=== PATIENT | male | born 1975 | race African-American/Black ===

== ENCOUNTER 2016-12-17 06:04 | Day surgery (SDC) | payer OTHER ==
--- NOTE | 2016-12-13 08:09 | PCM.HPSURG ---
Subjective Date of Service: Dec 02, 2016 Referring Provider: Admitting Physician: Primary Care Physician: Jonathan Bosch MD Attending Physician: Vel Rzaa MD Chief Complaint SEE BELOW History of Present Illness Patient: Primitivo Jones Date of : 1975 Visit Type: Pre Op Visit Date: 12/02/2016 10:45 AM This 41 year old male presents for Preop MIS left L5-S1 Hemilami/Decompress & Microdisc. History of Present Illness: 1. Preop MIS left L5-S1 Hemilami/Decompress & Microdisc Primitivo Jones is a 41 year old male referred by Primary Care Provider (PCP) Dr. Cesar Cartagena M.D. on today's date 12/02/2016 for a preoperative type of appointment concerning the decision for surgery involving minimal access surgery with left L5-S1 partial hemilaminectomy, lateral recess decompression all the left S1 nerve root, microdiscectomy, & harvest of subcutaneous fat from a separate incision for epidural fat graft secondary to a diagnosis of lumbar radiculopathy with related complaints of severe, intractable, and debilitating low back pain radiating to the left lower extremity with numbness, & paresthesias. This is patient was last evaluated by Dr. Vel Raza M.D. on 10/22/2016 & presents with persistent and severe lower back and left leg pain. According to the patient, he had episode of sciatica last November which improved with conservative treatment and lumbar RALPH. The leg pain subsided but never went completely away and then developed a severe onset of low back and left leg pain numbness and weakness on 10/13/2016. According to patient his pain is rather intractable and feels weak in his left leg. Denies any symptoms on the right side. No recent changes in bladder or bowel dysfunction. He is here today for evaluation regarding his current symptoms. According to Dr. Raza the patient has severe & intractable left S1 radiculopathy secondary to a large inferior extruded herniated disc & moderate lateral recess narrowing. The symptoms have been recurrent & he has failed conservative treatment therefore he is an appropriate candidate for minimal access lumbar spinal decompression surgery with subcutaneous fat harvest from separate incision for epidural grafting. Dr. Raza & the patient discussed all the risks and benefits associated with this procedure as well as reasonable expectations with regards to surgical outcomes & the patient elected to proceed with surgery as planned. The patient has a reported pertinent past medical, surgical, family, & social history for no significant reported surgical or medical history 2-3 alcoholic drinks per week with no other then the above known positive history &/or review of all other organ systems. The patient's related complaints have been a serious detriment to their happiness and activities of daily living. Having failed conservative treatment the patient presents today for their decision for surgery appointment involving left L5-S1 partial hemilaminectomy, lateral recess decompression all the left S1 nerve root, microdiscectomy, & harvest of subcutaneous fat from a separate incision for epidural fat graft for treatment of lumbar radiculopathy; related to severe, intractable, debilitating lower back pain radiating the left lower extremity with numbness, & paresthesias. The procedure is scheduled to be performed by Dr. Vel Raza M.D. on 12/17/2016. Problem List: Problem Description Acute left-sided low back pain without sciatica Medical/Surgical/Interim History Reviewed, no change. Last detailed document date:12/02/2016. Family History: Reviewed, no changes. Last detailed document date:12/02/2016. Social History: Tobacco use reviewed. Reviewed, no changes. Last detailed document date: 12/02/2016. Allergies: Ingredient Reaction Medication Name Comment NO KNOWN ALLERGIES Reviewed, no changes. Review of Systems System Neg/Pos Details MS Positive Back pain, Leg Pain. Psych Negative Anxiety and depression. Anival/Lymph Negative Blood clots. GI Negative Abdominal pain, constipation, diarrhea, nausea and vomiting. Constitutional Negative Chills and fever. Integumentary Negative Mrsa and rash. Eyes Negative Double vision and vision loss. Respiratory Negative Dyspnea, apnea and wheezing. Endocrine Negative Weight gain and weight loss. Neuro Negative Dizziness, headache and seizures. Negative Dysuria, urge incontinence and urinary incontinence. MS Negative Bone/joint symptoms and muscle weakness. Cardio Negative Chest pain, irregular heartbeat/palpitations, leg swelling and pacemaker. ENMT Negative Hearing loss. Vital Signs Height Time ft in cm Last Measured Height Position % 10:39 AM 5.0 6.00 167.64 12/02/2016 Weight/BSA/BMI Time lb oz kg Context % BMI kg/m2 BSA m2 10:39 AM 134.20 60.872 dressed with shoes 21.66 Blood Pressure Time BP mm/Hg Position Side Site Method Cuff Size 10:39 AM 130/80 sitting left arm manual adult large Temperature/Pulse/Respiration Time Temp F Temp C Temp Site Pulse/min Pattern Resp/ min 10:39 AM 98.0 36.7 temporal 95 regular 20 Pulse Oximetry/FIO2 Time Pulse Ox (Rest %) Pulse Ox (Amb %) O2 Sat O2 LPM Timing FiO2 % L/min Delivery Method 10:39 AM 98 Pain Scale Time Pain Score Method 10:39 AM 3/10 Numeric Pain Intensity Scale Comments Time Comments 10:39 AM When patient is moving left side of leg to bottome left foot 7/10 Measured By Time Measured by 10:39 AM Kelsey Grimes MA Physical Exam Exam Findings Details Comments Gen.: Patient was examination and appears to be a severe muscle skeletal discomfort. Patient is unable to get on toes on the left but has good dorsiflexion strength. Patient has a left leg limp. HEET: Normal with full range of motion Chest : Clear P and A Heart: Regular rate and rhythm Abdomen; soft non-tender normal bowel sounds Ext.: 5/5 strength except for 4+ over 5 plantarflexion weakness on the left. Numbness in the S1 distribution. Positive straight leg maneuver at 35. Loss of ankle jerk on the left. Back: There is involvement therapy paraspinous muscle spasm on the left. There is sciatic notch tenderness on the left. Radiographic imaging: Review the patient's MRI scan of the lumbar spine demonstrates evidence of large left L5-S1 herniated disc with marked compression of the S1 nerve root. There is moderate foraminal stenosis at the L5-S1 level. There appears to be inferior extrusion and possible free fragment below the L5-S1 disc space. Assessment/Plan # Detail Type Description 1. Assessment Lumbar radiculopathy (M54.16). 2. Assessment Preoperative examination (Z01.818). Patient Plan We including your Attending Surgeon have discussed the risks and benefits associated your scheduled procedure which you have verbally acknowledged understanding including but not limited to the possibility of an outcome that we are unable to predict or was not mentioned. 1. You are scheduled for a left L5-S1 partial hemilaminectomy, lateral recess decompression all the left S1 nerve root, microdiscectomy, & harvest of subcutaneous fat from a separate incision for epidural fat graft with Dr.. Zeke Raza M.D. at [facility] on 12/17/2016. 2. Check in time is 6 AM. Also please ignore instructions below if told otherwise by your preadmission nurse or if you do not take the medications listed below. 3. Nothing to eat after midnight the night before surgery. You may take all of your "approved" medications with small sips of water. Remember to take your a.m. hypertension medication if it is a beta thee and ends in "olol. Otherwise ask your doctor if you need to hold your a.m. hypertension medication. 4. No aspirin, ibuprofen, Naprosyn, or other NSAIDs starting 7 days prior to surgery. 5. Please stop Warfarin/Coumadin or other blood thinners such as Plavix, Aggrenox, or Xarelto 7 days prior to your surgical procedure and follow specific instructions from your prescribing provider. 6. Please stop Lovenox bridging in the morning one day prior to procedure. 7. Please stop Suboxone/Buprenorphine at least 4 days prior to procedure. 8. Go to the hospital today to get her preoperative testing done. Take the order form to the surgery desk on the second floor of the [facility] (main entrance next to the emergency entrance). I will notify you if there is any test results that require further workup prior to surgery. 9. Follow the instructions you were given today, use the cleansing cloths the night before as well as the morning of her surgery. 10. If you are prescribed inhalers, CPAP or BiPAP machines you use at home bring along with you to the hospital. 11. ONLY If you take medications for Diabetes: If you have an insulin pump continue lowest (typically night-time) basal rate into the a.m. If you do not have a pump check h your a.m. blood sugar and hold insulin if BS less than 100. If you are taking long-acting, intermediate acting (NPH) or 70/30 preparation : Take half on day of procedure. If you are taking ultra long-acting insulin such as glargine, Lantus either at night or in the a.m. continue as scheduled ( including day of surgery). If you take short acting regular insulin (insulin not delivered via pump) discontinue on day of procedure. 12. Please call if you have any questions before your surgery: [phone]. Today's instructions/counseling include(s) Pre-operative instructions given to the patient and or legal sales representative supervisor(s) orally and in writing. 13. Our office will contact you if there are any test results that require further workup prior to surgery. Provider Plan The patient's history and examination as well as radiological findings were reviewed with Dr. Vel Raza M.D. and conveyed the patient in detail. The findings are consistent with lumbar radiculopathy and are most likely the cause of the patient's severe, intractable, and debilitating lower back pain radiating the left lower extremity with numbness, & paresthesias. The patient has failed extensive conservative treatment for this condition. The treatment options were discussed with the patient. The options include attempt to live with the condition, reattempt conservative treatment, try a pain management intervention / injection or consider a surgical intervention. We are not extremely optimistic that further conservative treatment, pain management intervention and/or injection will adequately resolve the patient's symptoms of severe, intractable, & debilitating lower back pain radiating the left lower extremity numbness, & paresthesias. Therefore we recommend left L5- S1 partial hemilaminectomy, lateral recess decompression all the left S1 nerve root, microdiscectomy, & harvest of subcutaneous fat from a separate incision for epidural fat graft. The patient was provided/offered educational materials pertaining to their diagnosis and the above discussed procedure. We discussed the risks and benefits associated with this surgery. A spine model was used to explain the nature of this type of surgery. The risk of the required anesthesia was also mentioned including but not limited to organ failure such as heart attack, pneumonia and stroke even . The risk of this type of surgery was also mentioned. Including but not limited to an unsuccessful outcome, residual symptoms, referred or radiating posterior spinal myofascial inflammatory pain or spasm, post operative instability, sensory changes, blood loss, blood clots, wound infection, spinal cord or nerve damage , CSF or lymph leak, damage to neighboring structures such as the recurrent abdominal vasculature, bowel, ureter, and bladder, resulting in temporary or permanent dysfunction, even disability, paralysis, and . The recovery of this type of surgery was also mentioned. There is a 15% chance of recurrent disc herniation with a discectomy. The chances for improvement of the related left lower extremity lumbar radiculopathy symptomology at one year is 70-80%. The chances of improvement of local mechanical unrelated lower back pain is 50%. The patient verbalized understanding all the risks and benefits, knowing that it is impossible to predict or guarantee every surgical outcome; and would like to proceed with the above discussed procedure anyways. Surgery is scheduled for 12/17/2016. The standard [facility] preoperative screening tests, medicine restrictions, and logistical protocols apply. Any preoperative testing is within normal limits to undergo the above discussed procedure unless otherwise noted in the medical record. Clinical Guidelines (Reviewed, no changes:Last detailed document date:) Medications (added, continued or stopped this visit): Start Date Medication Directions Stop Date 12/16/2016 cyclobenzaprine 5 mg tablet take 1-2 tablet by oral route every 8 hours as needed for spasm. hydrochlorothiazide 25 mg tablet take 1 tablet by oral route every day lisinopril 20 mg tablet take 1 tablet by oral route every day 10/07/2016 Medrol (Uvaldo) 4 mg tablets in a dose pack take as directed 11/27/2016 Medrol (Uvaldo) 4 mg tablets in a dose pack Take per package instructions oxycodone 10 mg tablet take 1 tablet by oral route every 4 - 6 hours 12/16/2016 oxycodone 5 mg tablet take 1 - 2 Tablet by oral route every 4-6 hours as needed for pain DO NOT EXCEED 8 TABS PER DAY. Counseling/Educational Factors: Counseling / educational factors reviewed. Counseling / educational factors reviewed. This is a visit of 60 minutes. 50 minutes were spent counseling. This document may have been created using voice recognition software or other electronic means and may contain inadvertent freight broker agent errors. Provider: Juan Francisco GALINDO 12/02/2016 12:23 PM Document generated by: Juan Francisco Juan 12/02/2016 12:23 PM CC Providers: Cesar Cartagena [address] [place] [address]- Jonathan Bosch [address] [place] [id number]- Cesar Cartagena [address] [place] [address]- [address] [place] [address] rubina marcus s Haile o melodie g Allergy Allergies: Coded Allergies: No Known Allergies (Unverified , 01/03/16) Social History Hx Alcohol Use: Yes (heavy drinker) Hx Substance Use: No PMH Cardiovascular History Cardiovascular History: Positive for:: Hypertension Denies:: Congestive Heart Failure Respiratory Respiratory History: Denies:: Tuberculosis Other History Diabetes: No Social History Hx Alcohol Use: Yes (heavy drinker)Hx Substance Use: No Smoking Status: Unknown if Ever Smoker Juan Francisco Juan PA-C Dec 13, 2016 08:09
[~2016-12-17] VITALS: Ht 167.6 cm; Wt 62.2 kg
[2016-12-17] VITALS (8 sets, daily range): BP systolic 126–155; BP diastolic 71–89; PULSE 78–100; RESP 11–23; O2SAT 97–100
[2016-12-17] MEDS: Lactated Ringer's 1,000 ML IV SCH ×2 (05:22→07:29)
[~2016-12-17 06:04] MED LIST: Bacitracin 50,000 unit Inj IRRIGATION ONE; Bupivacaine Liposome 1.3% 20 mL Inj INFILTRATE ONE; CYCL10TA9 PO; CeFAZolin Inj 2 GM in IV Premix 1 EACH IV ONE; HYDR25TA4 PO; LISI-567 PO; METH4TAB PO; OXYC5TAB72 PO; Thrombin Powder 5,000 Unit TOPICAL ONE
[2016-12-17] MEDS ORDERED: fentaNYL-PF 50 mCg/mL 2 mL Inj ONE (06:05)
[2016-12-17] MEDS ORDERED: Dexamethasone 4 mg/mL Inj ONE (06:05)
[2016-12-17] MEDS ORDERED: Rocuronium 10 mg/mL 5 mL Inj ONE (06:05)
[2016-12-17] MEDS ORDERED: Ondansetron 2 mg/mL 2 mL Inj ONE (06:05)
[2016-12-17] MEDS ORDERED: Phenylephrine/NS 100 mCg/mL 10 mL Syringe IVPUSH ONE (06:05)
[2016-12-17] MEDS ORDERED: Propofol 10,000 mCg/mL 20 mL Inj ONE (06:05)
[2016-12-17] MEDS ORDERED: EPHEDrine/NS 5 mg/mL 5 mL Syringe ONE (06:05)
[2016-12-17] MEDS ORDERED: Lactated Ringer's 500 ML IV PRN (07:02)
[2016-12-17] MEDS ORDERED: Lactated Ringer's 1,000 ML IV SCH (07:02)
[2016-12-17] MEDS ORDERED: Atropine 0.4 mg/mL Inj IVPUSH PRN (07:05)
[2016-12-17] MEDS ORDERED: Labetalol 5 mg/mL 4 mL Inj IV PRN (07:05)
[2016-12-17] MEDS ORDERED: hydrALAZINE 20 mg/mL Inj IVPUSH PRN (07:05)
[2016-12-17] MEDS ORDERED: Dexamethasone 4 mg/mL Inj IVPUSH PRN (07:05)
[2016-12-17] MEDS ORDERED: HYDROmorphone 1 mg/mL Inj IVPUSH PRN ×2 (07:05→09:40)
[2016-12-17] MEDS ORDERED: fentaNYL-PF 50 mCg/mL 2 mL Inj IVPUSH PRN (07:05)
[2016-12-17] MEDS ORDERED: MetoCLOpramide 5 mg/mL 2 mL Inj IVPUSH PRN ×2 (07:05→09:40)
[2016-12-17] MEDS ORDERED: Ondansetron 2 mg/mL 2 mL Inj IVPUSH PRN ×3 (07:05→09:40)
[2016-12-17] MEDS ORDERED: Phenylephrine 10,000 mCg/mL Inj IVPUSH PRN (07:05)
[2016-12-17] MEDS ORDERED: EPHEDrine Sulfate 50 mg/mL Inj IVPUSH PRN (07:05)
--- NOTE | 2016-12-17 07:14 | PCM.HPANE ---
Patient Data Date of Service: Dec 17, 2016 Surgeon Admitting Provider: Attending Provider:Vel Raza MD Primary Care Physician:Jonathan Bosch MD Other Provider:Barbara Pratt Anesthesia Reason for Visit Lumbar Region Radiculopathy Ht/WT & BMI Height (Feet): 5 Height (Inches): 6.00 Weight (Kilograms): 62.2 Body Mass Index 22.00 Allergies Coded Allergies: No Known Allergies (Unverified , 12/13/16) Past Anesthesia History Anesthesia History: Denies:: Fam Anesthesia Reaction, Fam Malignant Hypertherm Diabetes History Hx Diabetes?: No Current Bedside Blood Glucose: 81 MRSA MRSA: No Medications Hypertension Medication: Yes (LISINOPRIL,HCTZ) Home Meds Incl Beta Arlet: No Reported Medications oxyCODONE 5 Mg Tablet5-10 Mg PO Q4-6H PRN For Pain Ref 0 12/13/16 Methylprednisolone (Medrol)4 Mg Tablet4 Mg PO DIRECTED PRN For Pain Ref 0 4MG DOSE CHRISTA 12/13/16 Lisinopril 20 Mg Roceld42 Mg PO DAILY 30 Days Ref 0 12/13/16 Hydrochlorothiazide 25 Mg [id number] Mg PO DAILY 30 Days Ref 0 12/13/16 Cyclobenzaprine 10 Mg Tablet5-10 Mg PO TID PRN Spasm 01/03/16 Discontinued Reported Medications Hydrocodone-Acetaminophen 5-325 mg 1 Each Tablet1 Tablet PO Q4H PRN For Pain Ref 0 01/03/16 Discontinued Scripts Dexamethasone 4 Mg Tablet8 Mg PO BID #12 TABLET Ref 0 Prov:Jovanni Lancaster MD 01/03/16 Ondansetron (Zofran)4 Mg Tablet4 Mg PO Q4H PRN For Nausea #20 TABLET Prov:Jovanni Lancaster MD 01/03/16 History History of ENT Problems?: No Hx of Heart Problems?: Yes Cardiovascular History: Positive for:: Hypertension Denies:: Congestive Heart Failure Heart Murmur Hx of Respiratory Problem?: Yes Respiratory History: Denies:: Tuberculosis Use of C-PAP Machine (SNORES) Hx Neurologic Problems?: No Hx of GI Problems?: No Hx of Problems?: No Male Hx: Denies:: Prostate Problems Scrotal Mass Testicular Surgery Skin History: Positive for:: History Skin Disorders? (ECZEMA) Denies:: Pressure Ulcers Hx Musculoskeletal Problems?: Yes Musculoskeletal History: Positive for:: Back Injury (C/OF BACK/LEG PAIN) Hx of Psycho/Social Problems?: Yes Psycho Social History: Positive for:: Anxiety Hx Surgeries?: No Hx Any Other Health Problems?: No Other History: Denies:: Cancer Endocrine Disease Hospitalization Thyroid Disease History Blood Transfusions: Denies:: Blood Transfusions Hx Diabetes: NoBedside Blood Glucose: 81 Hx Alcohol Use: YesAlcoholic Drinks Per Day: PT ADMITS 2-3/WEEK; SAYS 5TH VODKA/DAYHx Substance Use: No Smoking Status: Unknown if Ever Smoker Have You Smoked inLast 12 mo: No Stop/Bang S-Snoring: Do You Snore Loudly: Yes T-Tired: feel tired, fatigued: No O-Obsered: Observed not breath: No P-Blood Pressure: treated: Yes B- Body Mass Index > 35 kg/m2: No A- Age over 50: No N- Neck Large Circumference: No G- Gender Male: Yes SHELTON Total Score: 3 SHELTON Risk Assessment: High Risk, =/>3 Yes SHELTON Category 4 OutPt Procedure: Yes Risk Assessment Category Category 1A: Patient has history of documented sleep apnea, and HAS NOT received any narcotic, sedative or anesthesia administration during this stay. Category 1B: Patient has history of documented sleep apnea, and HAS received any narcotic , sedative or anesthesia administration during this stay Category 2: Patient has SUSPECTED Obstructive Sleep Apnea, and HAS received any narcotic , sedative or anesthesia administration during this stay. Category 3: Patient has SUSPECTED Obstructive Sleep Apnea and HAS NOT received narcotic, sedative or anesthesia administration during this stay. Category 4: Outpatient in Procedural Areas with known sleep apnea or who screen positive for High Risk via the STOP/BANG questionnaire. Exam Exam Vital Signs Vital Signs Date Time Temp Pulse Resp B/P Pulse Ox O2 Delivery O2 Flow Rate FiO2 12/17/16 06:31 36.7 90 16 135/89 100 Room Air General Appearance: Alert, Oriented X3, Cooperative HEENT/AIRWAY: MP 2, Neck Movement (Full), Mouth Opening (Wide) Lungs: Clear to Auscultation, Normal Air Movement Heart: Regular Rate/Rhythm, Normal S1, Normal S2 Meds/Labs/Diagnostics Admission Meds Current Medications Lactated Ringer's (Lr) 1,000 ml @ 120 mls/hr Q8H20M IV Last administered on t 05:22; Start 12/17/16 at 05:00; Stop 12/17/16 at 13:19 Bedside Blood Glucose: 81 Plan Impression Patient chart reviewed, patient interviewed and anesthestic plan with risks, benefits, and alternatives discussed, and informed consent obtained. NPO Status: 12/16 at 2029 ASA Physical Status: ASA2 Mod Systemic Disease Anesthetic Plan: GA Bene/Risks/Altern/Consents: Yes HP Complete Prior to Induction: Yes Scotty Oglesby MD Dec 17, 2016 07:02
[2016-12-17] MEDS ORDERED: Bupivacaine-MPF 0.25%/EPI 30 mL Inj INJ ONE (07:29)
--- NOTE | 2016-12-17 08:33 | DRSVH ---
PROCEDURE: X-RAY LUMBAR SPINE, 2 OR 3 VIEW INDICATIONS: LUMBAR SPINE SURGERY TECHNIQUE: 2views of the lumbar spine were acquired. COMPARISON: MOY Denise, SPINE LUMB 2 OR 3VW, 12/12/2015, 12:33 PM. [facility] , LUMBAR TRANSFORAMINAL RALPH, 02/27/2016, 13:54. FINDINGS: 2 intraoperative fluoroscopy images demonstrate surgical instrument at the level of L5-S1. IMPRESSION: Intraoperative images demonstrate surgical instrument at the level of L5-S1. Dictated by: Gilma Roth M.D. on 12/17/2016 at 8:30 Approved by: Gilma Roth M.D. on 12/17/2016 at 8:32
--- NOTE | 2016-12-17 09:33 | PCM.ANEP1 ---
Post Anesthesia Phase 1 PACU Phase 1 Assessment Date of Service: Dec 17, 2016 Vital Signs Vital Signs Date Time Temp Pulse Resp B/P Pulse Ox O2 Delivery O2 Flow Rate FiO2 12/17/16 09:30 89 18 132/71 99 Room Air 12/17/16 09:25 95 16 134/81 100 Simple Mask 10 12/17/16 09:20 36.9 93 11 155/87 100 Simple Mask 10 12/17/16 06:31 36.7 90 16 135/89 100 Room Air Anesthetic Administered: GA Level of Alertness: Awake, talking GOMEZ's with Equal Strength: Yes Pain: No Nausea or Vomiting: No Cardiovascular Function and Hy: Yes Oxygen Delivery: Simple Mask Lungs: Normal Air Movement Complications: No Follow up Care: No Scotty Oglesby MD Dec 17, 2016 09:33
--- NOTE | 2016-12-17 09:35 | PCM.DISURG ---
Surgical Discharge Instruction Date of Service Dec 17, 2016 Dates of Hospitalization Date of Hospital Admission Day surgery status 12/17/2016 Providers Admitting Physician: Primary Care Physician: Jonathan Bosch MD Attending Physician: Vel Raza MD Discharge Diagnosis Discharge Diagnosis Status post minimal access surgery with left L5-S1 partial hemilaminectomy, lateral recess decompression of left S1 nerve root & microdiscectomy with harvest of subcutaneous fat for epidural graft from separate incision Post Operative diagnosis Status post minimal access surgery with left L5-S1 partial hemilaminectomy, lateral recess decompression of left S1 nerve root & microdiscectomy with harvest of subcutaneous fat for epidural graft from separate incision Additional Instructions Discharge Instructions Minimally Invasive Lumbar Laminectomy, Decompression, & Microdiscectomy Postoperative Instructions What is my recovery like? Patient usually go home the same day of surgery. A lumbar brace is worn for comfort only. What are my restrictions? You should not lift anything heavier than five pounds. You should not perform any excessive bending from the waist or twisting movements. Can I Shower? You may shower when you go home. You must remove the outside dressing on the 7th day after surgery, or change as needed if soiled or saturated (replacing new sterile gauze & water proof dressing) otherwise leave alone. The remaining small pieces of tape (steri-strips) directly on top of the incision may get wet. The steri-strips will fall off on their own. Can I drive? No, you should not drive until specifically given permission from your Doctor in a follow up appointment. Most Patient's can drive in 2-3 weeks if they are not taking narcotic pain medications or muscle relaxers. You may ride in a car, but should avoid trips longer than two hours in duration. When can I return work / sports? Your Doctor will discuss your return to work with you on your first postoperative follow-up appointment. Most patients may return to work within 2 weeks for sedentary jobs. More physically demanding jobs may require 3-6 months of healing before such work can be considered. When should I call the doctor? You should call your Doctor or go to the Emergency Department if you develop chest pain, shortness of breath, a temperature greater than 101.5 F, severe uncontrolled pain or weakness, loss of bowel or bladder function, choking, lots or drainage, pus discharge or constipation. Instructions Regarding Comfort & Pain Medication Use: During the recovery period , even with the use of pain medication, you may experience pain at the site of surgery. You may also have the same type of pain you had before surgery. Please use your pain scale as a guide for taking your pain medication. When your pain is greater than 4 out of 10, or when your pain reaches your personal tolerable level of pain, take your pain medication as prescribed. Use your pain medication on an 'as needed' basis. This means if your pain level is within your tolerable level of pain you DO NOT need to take the medication. As you get better, you will notice you can increase the time interval between doses and decrease the number of tablets you are taking, gradually taking less and less pain medication. Taking pain medication when it is not necessary (for example when your pain is tolerable or acceptable) can result in dangerous side effects and over- sedation. Signs and symptoms of over-sedation include: drowsiness, excessive sleeping, slow or difficult breathing, slurred speech, impaired thinking, confusion, impaired motor coordination. If you have any of these symptoms stop taking the medication and immediately contact your doctor. IF SYMPTOMS ARE LIFE THREATENING CALL 911. To decrease pain and swelling, frequently apply an ice pack for 20 min intervals with at least one hour off. When to take Acetaminophen for pain? If you don't have liver problems, allergies and/or Tylenol is not in your current pain medication. Take Extra Strength Tylenol 500mg 2 tabs by mouth every 6 hours as needed for pain. DO NOT EXCEED 8 TABS PER DAY. Follow Up Plan Follow Up Plan Home in stable condition from day surgery. Follow-up Provider (F9): Juan Francisco Juan PA-C Additional Information Attending Statement All documentation reviewed & orders authorized by Dr. Vel Raza M.D. Juan Francisco Juan PA-C Dec 17, 2016 09:35
[2016-12-17] MEDS ORDERED: 0.9% Sodium Chloride 1,000 ML IV SCH (09:36)
[2016-12-17] MEDS ORDERED: Magnesium Hydroxide 10 mL Oral Concentration PO PRN (09:40)
[2016-12-17] MEDS ORDERED: hydrOXYzine Pamoate 25 mg Capsule PO PRN (09:40)
[2016-12-17] MEDS ORDERED: oxyCODONE-Acetamin 5-325 mg Tablet PO PRN (09:40)
[2016-12-17] MEDS ORDERED: Senna-Docusate 8.6-50 mg Tablet PO PRN (09:40)
[2016-12-17] MEDS ORDERED: Polyethylene Glycol (PEG) 17 Gm Powder PO PRN (09:40)
[2016-12-17] MEDS ORDERED: Sodium Biphos-Phos 133 mL Enema RECTAL PRN (09:40)
--- NOTE | 2016-12-17 12:32 | OP ---
[address] [address] OPERATIVE REPORT PATIENT: SAMANTHA FLORES : 1975 MR#: [id number] ADMIT: 12/17/2016 JOB ID: [id number] DATE OF SURGERY: 12/17/2016 PREOPERATIVE DIAGNOSIS(ES): Persistent left lumbar radiculopathy secondary to inferior treated herniated disk and severe lateral recess narrowing. POSTOPERATIVE DIAGNOSIS(ES): Persistent left lumbar radiculopathy secondary to inferior treated herniated disk and severe lateral recess narrowing. OPERATION/PROCEDURE: 1. METRx microscopic left L5-S1 partial hemilaminotomy with lateral recess decompression of the L5 and S1 nerve roots. 2. Microlumbar diskectomy, left L5-S1. 3. Placement of epidural fat graft obtained from a separate incision. 4. Intraoperative fluoroscopy of less than one hour. SURGEON: Vel Raza MD. FIELD PROJECT MANAGER: Juan Francisco Jaun PA-C. ANESTHESIA: General endotracheal. COMPLICATIONS: None. ESTIMATED BLOOD LOSS: Less than 10 cc. DRAINS: None. FINDINGS AT TIME OF SURGERY: There was evidence of a hard herniated disk at the L5-S1 level with inferior extrusion. There was severe lateral recess narrowing, lateral recess decompression of the L5 and S1 nerve roots performed, and after decompression a nerve hook feeler could be placed out the L5 and S1 neural foramen without difficulty. A microlumbar diskectomy was performed at the L5-S1 level. After decompression the thecal sac and nerve roots were free and clear of any further bony or soft tissue compression, with no evidence of any CSF leak or durotomy. INDICATIONS: This is a 41-year-old gentleman who felt lower back and left leg pain. The patient underwent an appropriate period of conservative therapy and continued to have persistent symptoms. MRI scan was subsequently obtained with showed evidence of a large herniated disk with severe lateral recess narrowing. The patient received a neurosurgical evaluation after failure of conservative measures. Option of surgery was discussed with the patient. The patient elected to proceed with minimal access L5-S1 decompression. Indications and complications of the procedure were explained to the patient. He acknowledged he understood and wanted to proceed. DESCRIPTION OF OPERATION/PROCEDURE: The patient was identified in the preop area. L5-S1 was marked on the patient's back on the left side. He was then taken to the operating room, where he underwent general endotracheal anesthesia without complication. The patient was given 2 g of intravenous Ancef. SCD placed on lower extremities. The patient was placed in a prone position on a Randall frame in a flexed position. The patient's extremities were properly padded and positioned. The lower back was prepped and draped in the usual sterile fashion for minimal access left L5-S1 decompression. After appropriate prepping and draping, the appropriate time-out in the OR was performed, confirming the patient's name, date of , planned procedure and presence of appropriate instrumentation. The patient's SHELTON, beta block, diabetic and MRSA status was reviewed. Antibiotic administration, DVT prophylaxis and appropriate imaging on the screen were confirmed. The skilled assistance of the PA, Juan Francisco Juan, was necessary for the successful completion of the case. He was essential for proper positioning, retraction of the thecal sac and nerve roots, as well as general safety of the patient. After time-out was performed, the spinal needle was inserted adjacent to the spinous process of L5 and S1 on the left side. Intraoperative fluoroscopy was brought into place, verifying the L5-S1 level. Once this level was verified, it was then marked on the patient's back. A left paramedian incision was made after infiltration with 0.25% Marcaine with epinephrine. The incision was carried down through skin and subcutaneous tissue. A subcutaneous fat graft was obtained. A second incision was made and carried down through skin and subcutaneous tissue, down through the level of the lumbodorsal fascia. First, blunt dilating operating tube was then placed under fluoroscopic guidance over the L5-S1 disk space until a 5 x 22 mm operating tube was in place. The L5-S1 level on the left was verified by Radiology. Once the tube was attached to the arm device, the operating microscope was brought in place. Overlying soft tissue was then removed using Bovie cautery. A high-speed drill was then used to extend the inferior lamina of L5 and superior lamina of S1. A generous hemilaminotomy was performed. Lateral recess decompression of the L5 and S1 was performed. There was severe compression related to a posterolateral disk herniation. Epidural veins were coagulated and cut. Without retracting the thecal sac and nerve roots, the disk space was opened laterally and protrusion of disk material was noted. Routine diskectomy was then performed using up, down and straight pituitary forceps, as well as down-pushing curette. Disk herniation extruded inferiorly. At that point, the tension was off of the thecal sac and nerve root, and this was gently retracted using nerve root retractor, and further removal of disk material was undertaken. After diskectomy was completed, the wound was irrigated with Bacitracin-containing saline, as well as the disk space. Hemostasis was achieved using 2-point cautery, Gelfoam and cottonoids. At that point, a nerve hook feeler was placed out of the L5 and S1 neural foramen without difficulty. It appeared to be free and clear of any further bony or soft tissue compression. Once hemostasis was achieved, the exposed thecal sac and nerve roots were covered with a subcutaneous fat graft, followed by Gelfoam soaked in thrombin. The tube was then carefully removed coagulating bleeding points. Once it was removed, the fascial layer was then reapproximated using interrupted 3-0 Vicryl suture. The subcutaneous layer was then closed using 3-0 Vicryl suture, and the skin was then closed using 4-0 Vicryl in a subcu fashion. The incision was then dried and cleaned. Benzoin applied, followed by Steri-Strips. There was then covered with a sterile Telfa dressing and 3-inch OpSite. The patient was then transferred to a stretcher, awakened and extubated, and taken to the [facility]. The patient will be discharged as an outpatient today. Estimated blood loss was 10 cc. MTDD
[2016-12-17] MEDS ORDERED: CeFAZolin Inj 2 GM in IV Premix 1 EACH IV SCH (16:30)
[2016-12-17] MEDS ORDERED: Senna-Docusate 8.6-50 mg Tablet PO SCH (20:30)
== END 2016-12-17 23:59 | disposition home or self-care (01) ==
LOC: SAS 06:04
PROVIDERS: ATTEND Neurological Surgery
DX: M54.16 Radiculopathy, lumbar region (principal); M54.5 Low back pain; I10 Essential (primary) hypertension; F41.9 Anxiety disorder, unspecified
CPT/HCPCS: 15040; 63047; 72100; 76000; J0690; J1100; J1885; J2250; J2370; J2405; J3010; J7120